=== PATIENT | female | born 1985 | race Caucasian/White ===

== ENCOUNTER 2016-08-09 07:46 | Emergency (ER) | payer OTHER, SELFPAY ==
[2016-08-09] MEDS ORDERED: Ondansetron HCl/PF 4 MG/2 ML Vial ONE (08:15)
[2016-08-09] MEDS ORDERED: Morphine 4 MG/ML Carpuject ONE ×3 (08:15→10:20)
[2016-08-09] MEDS ORDERED: Ketorolac Tromethamine 30 MG/ML VIAL ONE (08:15)
[2016-08-09 08:45] LABS: Bilirubin Negative (Negative); Blood, Urine Small (Negative); Glucose, Urine (Dipstick) Negative (Negative); Leukocyte Negative (Negative); Nitrite Positive (Negative); Protein, Urine (Dipstick) 30 mg/dL (Neg-Trace); Urobilinogen 0.2 mg/dL (0.2-1.0); pH, Urine 5.5 (5.0-9.0)
[2016-08-09 08:50] LABS: ALT (SGPT) 61 U/L (0-55); AST (SGOT) 87 U/L (5-34); Albumin 4.6 g/dL (3.5-5.0); Alkaline Phosphatase 74 U/L (40-150); Amylase 19 U/L (25-125); Anion Gap 24 mmol/L (10-20); BUN (Urea Nitrogen) 14 mg/dL (7.0-18.7); Bilirubin, Total 0.9 mg/dL (0.2-1.2); Calc. Creatinine Clearance 0 mL/min (70-130); Carbon Dioxide 18 mmol/L (22-29); Chloride 102 mmol/L (98-107); Estimated GFR-MDRD Greater than 90; Globulin 3.1 g/dL (2.4-3.5); Glucose 140 mg/dL (70-105); Lipase 4 U/L (8-78); Potassium 4.2 mmol/L (3.5-5.1); Protein, Total 7.7 g/dL (6.0-8.3); Sodium 140 mmol/L (136-145)
[2016-08-09 08:54] LABS: Acetaminophen Less than 3.0 mcg/mL (10.0-30.0); Alcohol Less than 10 mg/dL (Less than 10); Salicylate Less than 5.0 mg/dL (15.0-30.0)
[2016-08-09 09:20] LABS: Mean Corpuscular HGB CONC 34.9 g/dL (32.0-36.0); Mean Corpuscular Hemoglobin 32.6 pg (27.0-31.0); Mean Corpuscular Volume 93.4 fl (81.0-99.0); Mean Platelet Volume 7.5 fL (7.4-10.4); Platelet Count 347 thou/uL (130-400); RBC Distribution Width 10.8 % (11.5-14.5); Red Blood Cell (RBC) Count 4.59 mill/uL (4.20-5.40); White Blood Cell (WBC) Count 22.8 thou/uL (4.8-10.8)
[2016-08-09 09:21] LABS: Specific Gravity, Urine 1.028 (1.005-1.030)
[2016-08-09 09:22] LABS: BHCG - Serum NEGATIVE (NEGATIVE); Band 10 % (5-11); Lymphocytes 11 % (21-51); Monocytes 1 % (0-10); Neutrophil 78 % (42-75); Pregs Control Background? CLEAR/WHITE (CLR/WHITE); Pregs Control Bar Appear? YES (CONTROL BAR)
[2016-08-09 09:23] LABS: Amphetamine Not Detected (NotDetected); Barbiturates Screen Not Detected (NotDetected); Benzodiazepine Screen Detected (NotDetected); Cocaine Metabolite Screen Not Detected (NotDetected); Medtox Control Line Valid? VALID (VALID); Methadone Not Detected (NotDetected); Methamphetamine Not Detected (NotDetected); Opiate Screen Detected (NotDetected); Oxycodone Screen Not Detected (NotDetected); Phencyclidine (PCP) Not Detected (NotDetected); Renal Epithelial 0-3 HPF (0-3); Squamous Epithelial 0-3 HPF (0-3); THC/Cannabinoid Screen Detected (NotDetected); Transitional Epithelial 0-3 HPF (0-3); Tricyclic Screen Not Detected (NotDetected)
[2016-08-09 09:24] LABS: Bacteria/HPF 3+ HPF (None Seen); Clarity Hazy (Clear)
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
[2016-08-09 10:42] LABS: INR-International Normal Ratio 1.1; PTT 27.4 SEC (22.9-36.1); Prothrombin Time 14.3 SEC (12.0-14.7)
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
[2016-08-09 11:13] LABS: Troponin I Less than 0.010 ng/mL (< 0.028)
[2016-08-09] MEDS ORDERED: Sodium Chloride 0.9% 1,000 ML BAG ONE (11:20)
[2016-08-09] MEDS ORDERED: Sodium Chloride Irrig Solution 250 ML BOT ONE (11:20)
[2016-08-09 11:22] LABS: CKMB 40.7 ng/mL (0-6.6)
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
[2016-08-09] MEDS ORDERED: Iopamidol 370 76% 100 ML VIAL ONE (13:29)
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
== END 2016-08-09 11:15 | disposition short-term general hospital (02) ==
LOC: MADERS 07:46
DX: S42.102A Fracture of unspecified part of scapula, left shoulder, initial encounter for closed fracture (principal); S32.592A Other specified fracture of left pubis, initial encounter for closed fracture; S32.009A Unspecified fracture of unspecified lumbar vertebra, initial encounter for closed fracture; S43.015A Anterior dislocation of left humerus, initial encounter; S43.035A Inferior dislocation of left humerus, initial encounter; S01.01XA Laceration without foreign body of scalp, initial encounter; S60.221A Contusion of right hand, initial encounter; K22.8 Other specified diseases of esophagus; F17.210 Nicotine dependence, cigarettes, uncomplicated; V89.2XXA Person injured in unspecified motor-vehicle accident, traffic, initial encounter
CPT/HCPCS: 12011; 36415; 51702; 70450; 71260; 72125; 72170; 74177; 80053; 80306; 80307; 81003; 81015; 82150; 82550; 82553; 83690; 84484; 84703; 85025; 85610; 85730; 87086; 93005; 96361; 96374; 96375; 96376; J1885; J1956; J2270; J2405; J7050